=== PATIENT | female | born 2000 | race Two or more races ===

== ENCOUNTER 2024-11-08 21:08 | Emergency (ER) | payer MEDICAID, SELFPAY ==
[2024-11-08 21:27] VITALS: BP 127/82; PULSE 95; RESP 18; TEMP 37.3; O2SAT 97
[2024-11-08 21:28] VITALS: BMI 38.9
--- NOTE | 2024-11-08 21:39 | XR_ITS ---
Examination: CT brain head without contrast. 2-D sagittal coronal reconstructions Date and time of exam:November 08, 2024 at 10:11 PM Indications: Left facial numbness, cannot close left eye. CTDI: vol (mGy):51.71 DLP: (mGycm):1105 Technique: Multiple CT axial sections of the brain have been obtained, 5 mm slice thickness. Contrast has not been administered. 2-D sagittal, coronal reconstructions have been obtained Low dose protocols were performed. One or more of the following dose reduction techniques were used; automated exposure control, adjustment of the mA and/or KV according to patient size, use of iterative reconstruction technique. Findings: No significant ventricular enlargement. Intra-axial or extra-axial hemorrhage density is not seen. No mass effect or midline shift Basal cisterns are not remarkable. Fourth ventricle is midline. Cranial vault intact. Impression: Negative for acute hemorrhage, mass effect or midline shift Brain MRI follow-up would best assess for demyelinating disease, acute ischemic change
--- NOTE | 2024-11-08 21:39 | PD.EDRME ---
Rapid Medical Screening Exam RME Arrival date/time: 11/08/24 21:08 24-year-old female no significant past medical history presents emergency department complaining of inability to close left eyelid completely and left face numbness that started today. Chief Complaint: General Adult/Misc Complain Time Seen by Provider: 11/08/24 21:28 Vital signs: Vital Signs Temperature 99.2 F 11/08/24 21:27 Pulse Rate 95 11/08/24 21:27 Respiratory Rate 18 11/08/24 21:27 Blood Pressure 127/82 11/08/24 21:27 Pulse Oximetry (%) 97 11/08/24 21:27 Oxygen Delivery Method Room Air 11/08/24 21:27 Vital signs reviewed by provider: Yes
--- NOTE | 2024-11-08 23:20 | EDNOTE_ITS ---
ED Eye Problem RME/HPI General Chief complaint: General Adult/Misc Complain Stated complaint: LEFT FACE NUMBNESS ,CANT BLINK LEFT EYE Time Seen by Provider: 11/08/24 21:28 Source: patient Arrival date/time: 11/08/24 21:08 24-year-old female no significant past medical history presents emergency department complaining of inability to close left eyelid completely and left face numbness that started today. Patient denies any recent illness, fever, chills, cough, ear pain, sore throat, dizziness, vomiting, vision changes, or any other associated symptoms. Mode of arrival: ambulatory Limitations: no limitations RME / HPI RME / HPI Narrative: 11/08/24 21:08 24-year-old female no significant past medical history presents emergency department complaining of inability to close left eyelid completely and left face numbness that started today. Related Data Previous Rx's ?Medication ?Instructions ?Recorded artificial tears(hypromellose) 0.3 1 drp ophthalmic (e ye) QID PRN dry 11/08/24 % eye drops eyes #15 mL prednisone 20 mg tablet See Taper PO QDAY #20 tabs 0 11/08/24 propylene glycol 0.6 % eye drops 1 drp ophthalmic (eye ) QDAY PRN 11/08/24 (Lubricant Eye (propylene glycol)) dry eye(s) #10 mL valacyclovir 1 gram tablet 1,000 mg PO TID 7 days #21 tabs 11/08/24 Allergies Allergy/AdvReac Type Severity Reaction Status Date / Time Penicillins Allergy Verified 11/08/24 21:11 Review of Systems Review of Systems Systems Reviewed: All systems reviewed, normal except as documented Constitutional Constitutional: Reports system reviewed and no additional complaints, except as documented, Denies body ache(s), Denies chills and Denies fever(s) Eyes Eyes: Reports system reviewed and no additional complaints, except as documented, Denies change in vision and Reports other (Inability to close left eye) ENT Ears, Nose, Mouth, and Throat: Reports system reviewed and no additional complaints, except as documented, Denies disequilibrium, Denies dizziness, Denies sore throat and Denies vertigo Cardiovascular Cardiovascular: Reports system reviewed and no additional complaints, except as documented, Denies chest pain and Denies dyspnea Respiratory Respiratory: Reports system reviewed and no additional complaints, except as documented, Denies chest congestion, Denies cough and Denies dyspnea Gastrointestinal Gastrointestinal: Reports system reviewed and no additional complaints, except as documented, Denies abdominal pain, Denies nausea and Denies vomiting Musculoskeletal Musculoskeletal: Reports system reviewed and no additional complaints, except as documented, Denies abnormal gait, Denies arthralgias and Reports numbness Integumentary/Breasts Skin/Breast: Reports system reviewed and no additional complaints, except as documented, Denies erythema, Denies rash and Denies wounds Neurologic Neurologic: Reports system reviewed and no additional complaints, except as documented, Denies abnormal gait, Denies disequilibrium, Denies dizziness, Reports numbness and Denies vertigo Past Medical History Social History SMOKING STATUS: Never smoker ED Exam General Limitations: Present no limitations General appearance: Present alert and in no apparent distress Head Head exam: Present atraumatic Eye Eye exam: Present normal appearance, PERRL and EOMI Expanded Eye Exam Eyelids: bilateral: normal inspection Pupils: Bilateral: regular, round Sclera/Conjunctival: bilateral: normal inspection ENT ENT exam: Present normal exam, normal oropharynx and mucous membranes moist Neck Neck exam: Present normal inspection, full ROM and trachea midline Chest Chest inspection: Present normal inspection and symmetric chest wall rise Respiratory Respiratory exam: Present normal lung sounds bilaterally Cardiovascular Cardiovascular exam: Present regular rate, normal rhythm and normal heart sounds Abdominal Exam Abdominal exam: Present soft and normal bowel sounds Extremities Exam Extremities exam: Present normal inspection and full ROM Back Exam Back exam: Present normal inspection and full ROM Neurological Exam Neurological exam: Present alert and oriented X3 Expanded Neurological Exam Patient oriented to: Present person, place and time Speech: Present fluid speech Cranial nerves: Normal: EOM function (II, III, IV, ), facial sensation (V), spinal accessory function (XI) and tongue deviation (XII) and Abnormal Left: facial palsy (VII) Cerebellar function: Normal: finger to nose and heel to toth Cerebellar function: Present normal gait Coma scale eye opening: spontaneous Coma scale motor response: obeys commands Coma scale verbal response: oriented Coma scale total: 15 Psychiatric Psychiatric exam: Present normal affect and normal mood Skin Skin exam: Present warm, dry, intact and normal color Course Quality Measures none Orders Category Date Time Status CT head/brain wo con Stat Exams 11/08/24 21:39 Completed predniSONE Med 11/08/24 23:29 Discontinued 60 mg PO X1 ONE Vital Signs Vital signs: Vital Signs Temperature 99.2 F 11/08/24 21:27 Pulse Rate 95 11/08/24 21:27 Respiratory Rate 18 11/08/24 21:27 Blood Pressure 127/82 11/08/24 21:27 Pulse Oximetry (%) 97 11/08/24 21:27 Oxygen Delivery Method Room Air 11/08/24 21:27 97% room air within normal limits Eye MDM Narrative MDM Narrative:: 24-year-old female no significant past medical history presents emergency department complaining of inability to close left eyelid completely and left face numbness that started today. Patient denies any recent illness, fever, chills, cough, ear pain, sore throat, dizziness, vomiting, vision changes, or any other associated symptoms. CT scan of head was unremarkable. Cranial nerve exam 2 through 12 normal except cranial nerve VII abnormal to left side of face. 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 Patient will be treated with antivirals and steroids. Patient stable for discharge with steady gait instructed to follow-up with primary care provider in 2 to 3 days and return immediately to emergency department for any worsening symptoms or as needed. Patient data External records reviewed:: None Clinical information provided by:: patient Social determinants that could affect healthcare access:: none Patient has the following chronic illnesses:: None How is presenting disease/condition affected by chronic disease/condition?: no chronic disease Evaluation data The following diagnostics were reviewed and interpreted by me:: radiology exam(s) Lab and/or radiology exams considered but not ordered:: Ordered Interpretation Summary: Interpreted by me Medications / Prescriptions Medications or Prescriptions considered but not ordered:: Ordered Medication administrations:: Medication Administration History Discontinued Medications Prednisone (Prednisone 20 Mg Tablet) 60 mg PO X1 ONE Stop: 11/08/24 23:30 Last Admin: 11/08/24 23:33 Dose: 60 mg Documented By: KF Given Consultations Consultation(s) initiated? (list below): No Diagnosis Eye Problem Differential Diagnosis: corneal abrasion, corneal ulcer and other (CVA, TIA) Most likely diagnosis given after review of the tests above:: Nathan's palsy Admission Indicated Admission indicated?: not indicated Admission Request Was there a request for admission?: No Disposition Plan Disposition Plan: Discharge Discharge Attestation Discharge Attestation: The patient and all family members were given an opportunity to ask questions and understood the discharge instructions. Discharge instructions specifically effects, indications for sooner follow up or return to the emergency department, and the expected course of current diagnosis. Patient condition: Stable Discharge Plan Plan Patient Disposition: HOME (Self Care) Disposition Comment: Stable Prescriptions/Referrals Prescriptions/Med Rec: New valacyclovir 1 gram tablet 1,000 mg PO TID 7 Days Qty: 21 0RF prednisone 20 mg tablet See Taper PO QDAY Qty: 20 0RF Taper: Prednisone Taper 60 mg DAILY for 4 Days and 0 Hour 50 mg DAILY for 1 Day and 0 Hour 40 mg DAILY for 1 Day and 0 Hour 30 mg DAILY for 1 Day 20 mg DAILY for 1 Day 10 mg DAILY for 1 Day artificial tears(hypromellose) 0.3 % drops 1 drp ophthalmic (eye) QID PRN (Reason: dry eyes) Qty: 15 0RF Lubricant Eye (propyl glycol) 0.6 % drops 1 drp ophthalmic (eye) QDAY PRN (Reason: dry eye(s)) Qty: 10 0RF Rx Instructions: Apply eye lubricant at nighttime. Referrals: No Primary/Family,Physician [Primary Care Provider] - In 1 week Problem List Clinical Impression: Nathan's palsy Patient/Caregiver Discharge Instructions Discharge Activity: activity as tolerated Education Materials: Nathan's Palsy, ED Nathan's Palsy Additional Instructions: Take steroids and antiviral medication as prescribed. Avoid using eye patch as can lead to corneal abrasion. Apply eyedrops artificial tears as needed as needed throughout the day when awake. Apply eye lubrication at nighttime to keep eye moist. Follow-up with primary care provider and request referral to financial coordinator in 2 to 3 days. Return to emergency department for any worsening symptoms or as needed. Print Language: Maori Stand Alone Forms: Vera Award Info., Work/School Release, Patient Portal Info Letter PA/PROJECT MANAGEMENT ANALYST Supervising Physician BETH/PROJECT MANAGEMENT ANALYST Supervising Physician: Dr. Danielle
[2024-11-08] MEDS: predniSONE 20 MG TABLET 60 MG PO (23:33)
== END 2024-11-08 23:44 | disposition home or self-care (01) ==
PROVIDERS: Emergency Provider Emergency Medicine
DX: G51.0 Bell's palsy (principal)
CPT/HCPCS: 70450; 99284; J7512